=== PATIENT | female | born 1995 | race Caucasian/White ===

== ENCOUNTER 2022-09-14 11:56 | Inpatient (IN) | payer MEDICAID ==
[~2022-09-14] VITALS: Ht 165.1 cm; Wt 61.4 kg
[2022-09-14] MEDS ORDERED: PEG 3350/Na sulf,bicarb,Cl/KCl oral sol 4 liter bottle PO SCH (12:30)
--- NOTE | 2022-09-14 12:38 | NUR ---
BROUGHT COMMODE TO BEDSIDE. PT WAS BLUE IN FACE, FLIPPED OVER, IN HAND CUFFS, STIFF. DR AND STAFF TO BEDSIDE. NARCAN 2MG GIVEN. PT URINATED HERSELF. PT RESPONESIVE, GAVE HER NAME LUCHO, REORIENTED HER. PT JUST VOMITED MINIMAL BILE.
[2022-09-14] MEDS ORDERED: naloxone 2mg/2ml inj IV STA (12:39)
[2022-09-14] MEDS: LORazepam 2 mg/ml vial ONE ×2 (13:00→14:23)
--- NOTE | 2022-09-14 13:09 | NUR ---
PT VOMITED WITH 16FR NG TUBE PLACEMENT. PT IN SOFT WRIST RESTRAINTS.
[2022-09-14] MEDS ORDERED: LORazepam 2 mg/ml vial ONE (13:25)
[2022-09-14 13:40] LABS: BASOPHILS % (AUTO) 0.2 % (0-1); EOSINOPHILS # (AUTO) 0.1 X10'3 (0-0.9); EOSINOPHILS % (AUTO) 0.6 % (0-6); HEMATOCRIT 35.1 % (35.0-45.0); HEMOGLOBIN 11.9 g/dl (12.0-16.0); LYMPHOCYTES # (AUTO) 1.7 X10'3 (1.1-4.8); LYMPHOCYTES % (AUTO) 12.6 % (21-51); MEAN CORPUSCULAR HEMOGLOBIN 27.8 PG (27.0-31.0); MEAN CORPUSCULAR VOLUME 81.8 FL (78-98); MEAN PLATELET VOLUME 6.9 FL (7.4-10.4); MONOCYTES # (AUTO) 0.6 X10'3 (0-0.9); MONOCYTES % (AUTO) 4.7 % (2-12); NEUTROPHILS # (AUTO) 11.2 X10'3 (1.8-7.7); NEUTROPHILS % (AUTO) 81.9 % (42-75); PLATELET COUNT 328 X10'3 (140-440); RED BLOOD COUNT 4.29 X10'6 (4.20-5.60); RED CELL DISTRIBUTION WIDTH 14.4 % (11.5-14.5); WHITE BLOOD COUNT 13.7 X10'3 (4.5-11.0)
[2022-09-14 13:51] LABS: ALANINE AMINOTRANSFERASE 14 U/L (12-78); ALBUMIN 3.4 G/DL (3.4-5.0); ALBUMIN/GLOBULIN RATIO 0.9 (1.1-1.5); ALKALINE PHOSPHATASE 89 IU/L (46-116); ANION GAP 10 (8-16); ASPARTATE AMINO TRANSFERASE 15 U/L (10-37); BILIRUBIN,TOTAL 0.2 MG/DL (0.1-1.0); BLOOD UREA NITROGEN 10 MG/DL (7-18); CALCIUM 9.4 MG/DL (8.5-10.1); CHLORIDE 103 MMOL/L (99-107); CREATININE 0.77 MG/DL (0.40-0.90); ETHANOL < 0.010 GM/DL (0.0-0.010); GLUCOSE 79 MG/DL (70-104); POTASSIUM 3.6 MMOL/L (3.5-5.1); SODIUM 136 MMOL/L (135-145); TOTAL CARBON DIOXIDE 23.4 MMOL/L (24-32); TOTAL PROTEIN 7.4 G/DL (6.4-8.2); eGFR 89 ML/MIN
[2022-09-14 14:03] LABS: ACETAMINOPHEN < 2.0 UG/ML (10-30)
[2022-09-14] MEDS ORDERED: potassium Cl 40MEQ/1/2NS 520ml 520 ML IV PRN (14:50)
[2022-09-14] MEDS ORDERED: potassium Cl 20 mEq SR tablet PO PRN ×2 (14:50)
[2022-09-14] MEDS ORDERED: magnesium Cl slow-release 64mg tablet PO PRN (14:50)
[2022-09-14] MEDS ORDERED: magnesium 2GM in 50ml NS 50 ML IV PRN (14:50)
[2022-09-14] MEDS ORDERED: magnesium 4gm in 100ml NS 100 ML IV PRN (14:50)
--- NOTE | 2022-09-14 16:00 | NUR ---
PER NASH RN PT AGREED TO NOT PULL OUT NGT SO SOFT RESTRAINTS WERE TAKEN OFF.
[2022-09-14] MEDS ORDERED: NO HOME MEDS (16:20)
[2022-09-14 16:46] LABS: URINE HCG POSITIVE (NEG)
[2022-09-14 17:05] LABS: URINE AMPHETAMINE SCREEN POSITIVE (Neg); URINE BARBITUATE SCREEN NEGATIVE (Neg); URINE BENZODIAZEPINES SCREEN NEGATIVE (Neg); URINE CANNABINOID SCREEN NEGATIVE (Neg); URINE COCAINE SCREEN NEGATIVE (Neg); URINE METHADONE SCREEN NEGATIVE (Neg); URINE OPIATE SCREEN NEGATIVE (Neg); URINE PHENCYCLIDINE SCREEN NEGATIVE (Neg)
--- NOTE | 2022-09-14 17:56 | NUR ---
PT PULLED OUT NGT. NO SX OF DISTRESS. BREATH SOUNDS CLEAR BILATERALLY
[2022-09-14 17:58] VITALS: BP 109/66
--- NOTE | 2022-09-14 17:59 | NUR ---
PER DR GRIFFIN RN SHOULD CALL POSION CONTROL
--- NOTE | 2022-09-14 18:15 | NUR ---
PT KATHERINE PADILLA NOTIFIED. PT HAD NO IV IN PLACE
--- NOTE | 2022-09-14 18:20 | NUR ---
PT LEFT AMA WITHOUT SIGNING PAPERWORK. RN WAS ABLE TO DISCONTINUE THE IV WITH NO COMPLICATION P/T PT LEAVING. PT REFUSED TO SIGN PAPERWORK. RN PAGED DR GRIFFIN TO NOTIFY HER PT LEFT AMA.
[2022-09-14] MEDS ORDERED: K and/or MAG REPLACEMENT MC SCH (20:00)
== END 2022-09-14 18:15 | disposition left against medical advice (07) | DRG 816 ==
LOC: ER 11:56 → EDBD 11:56 → ED HOLD 14:49 → UNDODISIN 18:15
PROVIDERS: ADMIT Internal Medicine; ATTEND Internal Medicine
DX: T40.5X1A Poisoning by cocaine, accidental (unintentional), initial encounter (principal); F15.90 Other stimulant use, unspecified, uncomplicated; F17.210 Nicotine dependence, cigarettes, uncomplicated; Z53.29 Procedure and treatment not carried out because of patient's decision for other reasons; T40.411A Poisoning by fentanyl or fentanyl analogs, accidental (unintentional), initial encounter; Y92.89 Other specified places as the place of occurrence of the external cause
CPT/HCPCS: 36415; 71045; 80053; 80305; 80320; 80329; 81025; 84702; 85025; 93005; 99285; C1758; G0378; J2060; J2310